=== PATIENT | female | born 1990 | race American Indian/Alaskan Native ===

== ENCOUNTER 2018-12-24 20:11 | Inpatient (IN) | payer OTHER ==
[2018-12-24] MEDS ORDERED: LACTATED RINGERS 1,000 ML ONE (20:54)
[2018-12-24] MEDS ORDERED: XYLOCAINE 2% INFILTRATI ONE (21:32)
[2018-12-24] MEDS ORDERED: BRETHINE SUB-Q PRN (21:32)
[2018-12-24] MEDS ORDERED: CERVIDIL VG ONE (21:32)
[2018-12-24] MEDS ORDERED: MINERAL OIL PO PRN (21:32)
[2018-12-24] MEDS ORDERED: BRETHINE IVP PRN (21:32)
[2018-12-24 21:49] LABS: Hematocrit 26.4 % (30.3-42.9); Hemoglobin 8.6 gm/dl (10.1-14.3); Mean Corpuscular HGB Conc 33 % (30-34); Mean Corpuscular Volume 81 fl (79-97); Platelet Count 211 K/mm3 (140-440); Red Blood Count 3.26 M/mm3 (3.65-5.03); Red Cell Distribution Width 14.6 % (13.2-15.2)
[2018-12-24] MEDS ORDERED: PITOCin/NS 20 UNIT/1000ML DRIP 20 UNITS/1,000 ML BAG IV SCH (22:00)
[2018-12-24] MEDS: LACTATED RINGERS 1,000 ML IV SCH (22:05)
[2018-12-24] MEDS: CLEOCIN 900 MG/50 mL 900 MG/50 ML BAG IV SCH (22:05)
[2018-12-25] MEDS: CLEOCIN 900 MG/50 mL 900 MG/50 ML BAG IV SCH ×2 (05:22→14:08)
[2018-12-25] MEDS: LACTATED RINGERS 1,000 ML IV SCH ×2 (06:53→14:09)
--- NOTE | 2018-12-25 11:10 | History and Physical Report ---
History of Present Illness Date of examination: 12/25/18 Date of admission: 12/24/18 20:11 Chief complaint: IOL for post dates History of present illness: 28yo AA Fe , SUSSY 12/17/2018, 41w0d, presents for IOL for postdates. Pt initiated late care from [facility] starting at 36 wks. Pt anemic (ferrous sulfate TID; not compliant), vitamin D deficiency (11.6; D3 escribed). Pt was planning to put baby up for adoption with family member but reports changing her mind. labs: B Positive, Rubella immune, VDRL non-reactive, HBsAg Negative, HIV negative, GBS Negative. 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 denies: smoking, alcohol abuse, prescription drug abuse, IV drug use - Obstetrical History Expected Date of Delivery: 12/17/18 Actual Gestation: 41 Week(s) 1 Day(s) : 3 Para: 1 Hx # Term Pregnancies: 1 Number of Pregnancies: 0 Spontaneous Abortions: 0 Induced : 1 Number of Living Children: 1 #1 Infant Gender: Female year: 2[age][birth year] Birthweight: 2.863 kg Method of Delivery: Vaginal Gestational age at delivery: 38 Complications: none Medications and Allergies Allergies Allergy/AdvReac Type Severity Reaction Status Date / Time amoxicillin Allergy Hives Verified 12/24/18 20:40 Home Medications Medication Instructions Recorded Confirmed Last Taken Type No Known Home Medications [No 12/24/18 12/24/18 Unknown History Reported Home Medications] Active Meds: Active Medications Butorphanol Tartrate (Stadol) 2 mg IV Q2H PRN PRN Reason: Pain , Severe (7-10) Ephedrine Sulfate (Ephedrine Sulfate) 10 mg IV Q2M PRN PRN Reason: Hypotension Oxytocin/Sodium Chloride (Pitocin/Ns 20 Unit/1000ml Drip) 20 units in 1,000 mls @ 125 mls/hr IV DIRECT ADY Lactated Ringer's (Lactated Ringers) 1,000 mls @ 125 mls/hr IV DIRECT ADY Last Admin: 12/25/18 06:53 Dose: 125 mls/hr Documented by: Clindamycin HCl (Cleocin 900 Mg/50 Ml) 900 mg in 50 mls @ 100 mls/hr IV Q8HR ADY; Protocol Last Admin: 12/25/18 05:22 Dose: 100 mls/hr Documented by: Oxytocin/Sodium Chloride (Pitocin/Ns 30 Unit/500ml) 30 units in 500 mls @ 4 mls/hr IV TITR ADY; Protocol Mineral Oil (Mineral Oil) 30 ml PO QHS PRN PRN Reason: Constipation Terbutaline Sulfate (Brethine) 0.25 mg SUB-Q ONCE PRN PRN Reason: Hyperstimulation/Hypertonicity Terbutaline Sulfate (Brethine) 0.25 mg IVP ONCE PRN PRN Reason: Hyperstimulation/Hypertonicity Review of Systems Eyes: normal appearance Cardiovascular: no chest pain, no shortness of breath Respiratory: no shortness of breath Breasts: normal Gastrointestinal: no nausea, no vomiting, no diarrhea, no constipation Genitourinary: normal appearance, vaginal bleeding (normal show), contractions, no leakage of fluid, no genital sores Integumentary: no rash, no sores, no lesions - Vital Signs Vital signs: Vital Signs Temp Pulse Resp BP 98.2 F 86 18 111/68 12/24/18 20:31 12/24/18 20:31 12/24/18 20:31 12/24/18 20:31 Temp Pulse Resp BP Pulse Ox 98.0 F 75 18 137/73 12/25/18 04:30 12/25/18 10:56 12/25/18 04:30 12/25/18 10:56 - Physical Exam Breasts: Positive: normal Cardiovascular: Regular rate, Normal S1, Normal S2, No murmurs Lungs: Positive: Clear to auscultation, Normal air movement Abdomen: Positive: normal appearance, soft, normal bowel sounds. Negative: distention Genitourinary (Female): Positive: normal external genitalia (normal bloody show noted), normal perenium Vulva: both: normal Uterus: Positive: enlarged (gravid) Anus/Rectum: Positive: normal perianal skin Extremities: Positive: normal Deep Tendon Reflex Grade: Normal +2 - Obstetrical FHR: category 1 Uterine Contraction Monitor Mode: External Cervical Dilatation: 2 (Cervidil removed) Cervical Effacement Percentage: 80 station: -0 Uterine Contraction Pattern: Regular Uterine Tone Measurement Phase: Resting Uterine Contraction Intensity: Moderate Results Result Diagrams: 12/24/18 21:00 Abnormal lab results 12/24/18 Range/Units 21:00 RBC 3.26 L (3.65-5.03) M/mm3 Hgb 8.6 L (10.1-14.3) gm/dl Hct 26.4 L (30.3-42.9) % MCH 26 L (28-32) pg All other labs normal. Assessment and Plan A: Term IUP at 41w0d Category 1 tracing Iron deficient Anemia GBS Negative Cervidil IOL; Cervidil removed P: Admit to L&D; Routine labor orders Pt may shower Pitocin augmentation May have IV pain med/epidural PRN Anticipate
[2018-12-25] MEDS ORDERED: PITOCin/NS 30 UNIT/500ML 30 UNITS/500 ML BAG IV SCH (12:00)
[2018-12-25] MEDS: STADOL IV PRN ×2 (12:34→15:41)
--- NOTE | 2018-12-25 18:25 | Progress Note ---
Assessment and Plan A: Term IUP at 41w0d Category 1 tracing Iron deficient Anemia GBS Negative Pitocin 12mu P: Admit to L&D; Routine labor orders Continue Pitocin augmentation Bolus for epidural Anticipate Subjective - Subjective Date of service: 12/25/18 Principal diagnosis: IOL Interval history: 28yo AA Fe , SUSSY 12/17/2018, 41w0d, presents for IOL for postdates. Pt initiated late care from [facility] starting at 36 wks. Pt anemic (ferrous sulfate TID; not compliant), vitamin D deficiency (11.6; D3 escribed). Pt was planning to put baby up for adoption with family member but reports changing her mind. labs: B Positive, Rubella immune, VDRL non-reactive, HBsAg Negative, HIV negative, GBS Negative. Patient reports: loss of fluid, vaginal bleeding, contractions Objective - Vital Signs Vital Signs: Vital Signs - 12hr 12/25/18 12/25/18 12/25/18 09:55 10:56 11:42 Pulse Rate 65 75 87 Blood Pressure 108/56 137/73 102/67 O2 Sat by Pulse Oximetry 12/25/18 12/25/18 12/25/18 11:44 11:49 11:50 Pulse Rate 88 84 93 H Blood Pressure O2 Sat by Pulse 97 97 92 Oximetry 12/25/18 12/25/18 12/25/18 11:54 11:56 11:59 Pulse Rate 86 71 73 Blood Pressure 109/66 O2 Sat by Pulse 98 95 Oximetry 12/25/18 12/25/18 12/25/18 12:04 12:09 12:10 Pulse Rate 77 92 H 95 H Blood Pressure O2 Sat by Pulse 98 96 94 Oximetry 12/25/18 12/25/18 12/25/18 12:14 12:16 12:19 Pulse Rate 69 79 70 Blood Pressure O2 Sat by Pulse 98 94 100 Oximetry 12/25/18 12/25/18 12/25/18 12:24 12:29 12:34 Pulse Rate 73 85 78 Blood Pressure O2 Sat by Pulse 96 93 96 Oximetry 12/25/18 12/25/18 12/25/18 12:35 12:57 13:56 Pulse Rate 72 65 63 Blood Pressure 101/60 98/55 O2 Sat by Pulse 94 Oximetry 10/12/25/18 12/25/18 14:56 15:56 16:57 Pulse Rate 60 58 L 57 L Blood Pressure 107/71 104/65 110/74 O2 Sat by Pulse Oximetry 12/25/18 17:58 Pulse Rate 54 L Blood Pressure 115/71 O2 Sat by Pulse Oximetry - Exam Breasts: normal Cardiovascular: Regular rate, Normal S1, Normal S2, No murmurs Lungs: Clear to auscultation, Normal air movement Abdomen: Present: normal appearance, soft, normal bowel sounds. Absent: distention Vulva: both: normal (Lg amt pink tinged fluid noted on chux) Uterus: Present: other (gravid) FHR: category 1 Uterine Contraction Monitor Mode: External Cervical Dilatation: 3.5 (Normal bloody show, SROM, clear fluid) Cervical Effacement Percentage: 90 station: -2 Uterine Contraction Pattern: Regular Uterine Tone Measurement Phase: Resting Uterine Contraction Intensity: Moderate Extremities: normal Deep Tendon Reflex Grade: Normal +2 - Labs Labs: Abnormal Labs 12/24/18 21:00 RBC 3.26 L Hgb 8.6 L Hct 26.4 L MCH 26 L Laboratory Results - last 24 hr 12/24/18 12/24/18 12/24/18 21:00 21:00 21:00 WBC 6.7 RBC 3.26 L Hgb 8.6 L Hct 26.4 L MCV 81 MCH 26 L MCHC 33 RDW 14.6 Plt Count 211 RPR Nonreactive Blood Type B POSITIVE Antibody Screen Negative
--- NOTE | 2018-12-25 19:25 | Procedure Note ---
OB Delivery Note - Delivery Date of Delivery: 12/25/18 (18:57) Surgeon: DAVID BARBA (WENDY) Estimated blood loss: 200cc - Vaginal Delivery presentation: vertex Delivery position: OA Intrapartum events: none Delivery induction: cervidil Delivery augmentation: pitocin Delivery monitor: external FHT, external uterine Route of delivery: (18:57) Delivery placenta: spontaneous (19:03) Delivery cord: 3 umbilical vessels Delivery laceration: none Anesthesia: intravenous Delivery comments: viable male infant АННА position over intact perineum at 18:57. Vigorous placed [id number] on mothers abdomen. Delayed cord clamping, then cut by pt Aunt with my guidance. Spontaneous see delivery of intact placenta. 3vc. Discarded per hospital policy. No tears or lacerations. FF@U-2, ebl 200ml. Infant and mother left in stable condition in L&D. - Infant A at 1 minute: 8 at 5 minutes: 9 Gender: Male (8lbs 0oz, 3639 grams)
[2018-12-25] MEDS ORDERED: ZOFRAN IV PRN (19:26)
[2018-12-25] MEDS ORDERED: MILK OF MAGNESIA PO PRN (19:26)
[2018-12-25] MEDS ORDERED: DULCOLAX PR PRN (19:26)
[2018-12-25] MEDS ORDERED: TYLENOL PO PRN (19:26)
[2018-12-25] MEDS ORDERED: LANSINOH TP PRN (19:26)
[2018-12-25] MEDS ORDERED: TUCKS PAD TP PRN (19:26)
[2018-12-25] MEDS ORDERED: BENADRYL PO PRN (19:26)
[2018-12-25] MEDS ORDERED: PHENERGAN PO PRN (19:26)
[2018-12-25] MEDS: NORCO 5/325 PO PRN (19:43)
[2018-12-25] MEDS ORDERED: SODIUM CHLORIDE FLUSH SYRINGE 10 ML IV SCH (20:00)
[2018-12-26] MEDS: IBUPROFEN PO SCH ×5 (00:18→23:20)
[2018-12-26 07:36] LABS: Hematocrit 24.5 % (30.3-42.9); Hemoglobin 8.1 gm/dl (10.1-14.3)
--- NOTE | 2018-12-26 09:52 | Progress Note ---
Assessment and Plan - Patient Problems (1) Status post normal vaginal delivery Current Visit: Yes Status: Acute Plan to address problem: PPD 1 - stable Continue routine orders Routine voiding with urge recommended Anticipate discharge in 24 hours (2) Anemia complicating in third trimester Current Visit: Yes Status: Acute Plan to address problem: Asymptomatic Iron therapy initiated Subjective - Subjective Date of service: 12/26/18 Principal diagnosis: PPD #1; s/p Interval history: see H&P, OB Progress Note and OB Delivery Procedure Note Patient reports: appetite normal, voiding normally, pain well controlled, ambulating normally, no dizzy ambulation : doing well Objective - Vital Signs Latest vital signs: Vital Signs Temp Pulse Resp BP BP Pulse Ox 12/26/18 05:02 98.2 F 53 L 20 117/46 97 12/26/18 00:57 97.8 F 51 L 20 118/64 96 12/25/18 21:45 98.1 F 46 L 16 113/76 97 12/25/18 20:56 55 L 20 121/65 121/65 12/25/18 20:50 98.1 F 56 L 20 123/59 123/56 12/25/18 20:20 98.1 F 52 L 12/25/18 19:57 50 L 22 131/76 131/76 12/25/18 19:43 20 12/25/18 17:58 54 L 115/71 12/25/18 17:00 98.0 F 12/25/18 16:57 57 L 110/74 12/25/18 15:56 58 L 104/65 12/25/18 14:56 60 107/71 12/25/18 14:00 98.1 F 12/25/18 13:56 63 98/55 12/25/18 12:57 65 101/60 12/25/18 12:35 72 94 12/25/18 12:34 78 96 12/25/18 12:29 85 93 12/25/18 12:24 73 96 12/25/18 12:19 70 100 12/25/18 12:16 79 94 12/25/18 12:14 69 98 12/25/18 12:10 95 H 94 12/25/18 12:09 92 H 96 12/25/18 12:04 77 98 12/25/18 11:59 73 95 12/25/18 11:56 71 109/66 12/25/18 11:54 86 98 12/25/18 11:50 93 H 92 12/25/18 11:49 84 97 12/25/18 11:44 88 97 12/25/18 11:42 87 102/67 12/25/18 11:00 98.1 F 12/25/18 10:56 75 137/73 12/25/18 09:55 65 108/56 Intake and Output 12/25/18 12/26/18 12/26/18 23:59 07:59 15:59 Intake Total 240 480 Output Total 250 800 Balance -10 -320 Intake: Oral 240 Intake, Free Water 480 Output: Urine 250 800 Void 250 800 Other: Total, Intake Amount 240 Total, Output Amount 250 400 Estimated Blood Loss 200 - Exam Cardiovascular: Present: Regular rate Lungs: Present: Clear to auscultation Abdomen: Present: normal appearance, soft Vulva: both: normal Uterus: Present: normal, firm, fundal height above umbilicus Extremities: Present: normal Comments: moderate lochia - Labs Labs: Abnormal lab results 12/26/18 Range/Units 07:24 Hgb 8.1 L (10.1-14.3) gm/dl Hct 24.5 L (30.3-42.9) %
[2018-12-26] MEDS: FEOSOL PO SCH ×2 (09:56→21:24)
[2018-12-26] MEDS: NORCO 5/325 PO PRN (21:24)
[2018-12-27] MEDS: IBUPROFEN PO SCH ×3 (05:19→17:20)
[2018-12-27] MEDS: FEOSOL PO SCH ×2 (10:36→21:26)
--- NOTE | 2018-12-27 11:22 | Progress Note ---
Assessment and Plan A: day 2 S/P spontaneous vaginal delivery. Anemia secondary to and blood loss. P: Discharge patient home today. Discussed with patient discharge instructions and warning signs. Advised patient to continue taking her vitamins and iron supplements at home (patient states she has enough of both at home). Advised patient to avoid intercourse, lifting and heavy housework. Advised patient to follow up with [facility] in 6 weeks for exam and contraception; told patient she will need to call the office Saturday12/29/18 to obtain an appointment. Patient voiced understanding of all instructions. Subjective - Subjective Date of service: 12/27/18 Principal diagnosis: PPD #2; s/p Interval history: day 2 S/P spontaneous vaginal delivery. Doing well. Patient desires discharge today. Patient reports small amount of lochia. Patient is voiding without difficulty, ambulating well, tolerating a regular diet without nausea or vomiting. Patient denies headache, chest pain, cough, shortness of breath, leg pain, abdominal pain, dizziness, or heavy vaginal bleeding. Patient reports: appetite normal, voiding normally, pain well controlled, flatus, ambulating normally, no dizzy ambulation, no nauseated : doing well Objective - Vital Signs Latest vital signs: Vital Signs Temp Pulse Resp BP BP Pulse Ox 12/27/18 07:19 98.3 F 52 L 16 121/57 95 12/27/18 05:19 18 12/27/18 00:18 98.5 F 60 20 107/67 97 12/26/18 21:24 18 12/26/18 16:21 98.4 F 50 L 18 118/78 Intake and Output 12/26/18 12/27/18 12/27/18 23:59 07:59 15:59 Intake Total 720 240 360 Balance 720 240 360 Intake: Oral 720 240 360 Other: Total, Intake Amount 240 240 360 # Voids Void 1 1 1 - Exam Cardiovascular: Present: Regular rate, Normal S1, Normal S2 Lungs: Present: Clear to auscultation Abdomen: Present: normal appearance, soft. Absent: distention, tenderness, guarding, rigidity Uterus: Present: normal, firm, fundal height below umbilicus. Absent: bogginess, tenderness Extremities: Present: normal. Absent: tenderness, edema
--- NOTE | 2018-12-27 15:57 | Discharge Summary ---
Providers - Providers Date of Admission: 12/24/18 20:11 Date of discharge: 12/27/18 Attending physician: PAOLO DURAND MD None Primary care physician: PAOLO DURAND MD Hospitalization Reason for admission: induction of labor Delivery: Episiotomy: none Laceration: none Other procedures: none complications: none Discharge diagnosis: IUP at term delivered baby: male Pertinent studies: Labs Hospital course: Normal hospital course Condition at discharge: Good Disposition: DC-01 TO HOME OR SELFCARE - Discharge Diagnoses (1) Term delivered Status: Acute (2) Anemia due to blood loss Status: Acute Plan - Provider Discharge Summary Activity: routine, no sex for 6 weeks, no heavy lifting 4 weeks, no strenuous exercise Diet: routine Instructions: routine Additional instructions: Continue taking your iron supplements and vitamins at home. Call your doctor immediately for: * Fever > 100.5 * Heavy vaginal bleeding ( >1 pad per hour) * Severe persistent headache * Shortness of breath * Reddened, hot, painful area to leg or breast - Follow up plan Follow up: PAOLO DURAND MD [Primary Care Provider] - 6 Weeks
[2018-12-27 22:26] VITALS: BP 112/54
== END 2018-12-27 22:32 | disposition home or self-care (01) | DRG 775 ==
LOC: LD 20:11 → OB 12-25 21:37
PROVIDERS: ADMIT Obstetrics & Gynecology; ATTEND Obstetrics & Gynecology
PROC: 3E0P7VZ Introduction of Hormone into Female Reproductive, Via Natural or Artificial Opening (ICD-10-PCS; 2018-12-24)
PROC: 10E0XZZ Delivery of Products of Conception, External Approach (ICD-10-PCS; principal; 2018-12-25)
DX: O48.0 Post-term pregnancy (principal); O99.02 Anemia complicating childbirth; D50.9 Iron deficiency anemia, unspecified; Z3A.41 41 weeks gestation of pregnancy; Z37.0 Single live birth; Z82.49 Family history of ischemic heart disease and other diseases of the circulatory system; Z88.1 Allergy status to other antibiotic agents; D62 Acute posthemorrhagic anemia
CPT/HCPCS: 36415; 59200; 85014; 85018; 85027; 86592; 86850; 86900; 86901; G0378; J0595; J2590; J7120